=== PATIENT | female | born 2000 | race Native Hawaiian/Other Pacific Islander ===

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

== ENCOUNTER 2023-02-08 12:26 | Emergency (ER) | payer OTHER ==
[~2023-02-08] VITALS: Ht 175.3 cm; Wt 107.0 kg
[~2023-02-08 12:26] MED LIST: SERT50TA PO
[2023-02-08 12:30] VITALS: BP 157/88; TEMP 99.1
== END 2023-02-08 13:27 | disposition home or self-care (01) ==
LOC: ED 12:26
DX: J32.9 Chronic sinusitis, unspecified (principal); R59.9 Enlarged lymph nodes, unspecified; J02.9 Acute pharyngitis, unspecified
CPT/HCPCS: 87502; 87651; 99283